=== PATIENT | female | born 1945 | race Caucasian/White ===

== ENCOUNTER → 2016-11-12 | Outpatient (CLI) | payer BC ==
[~2016-11-12] MED LIST: ACET-1311 PO; CHOL1000 PO; CLR10 PO; IBUP-1050 PO; OXYC-57 PO; WARF2TAB PO
--- NOTE | 2016-11-12 14:15 | DIAGNOSTIC IMAGING REPORT ---
AP STANDING VIEW OF BOTH KNEES; 3 VIEWS LEFT KNEE CLINICAL HISTORY: Left knee pain. FINDINGS: An AP standing view of both knees, with crosstable lateral, tunnel, and sunrise views of the left knee are obtained. No prior studies are available for comparison at the time of dictation. The skeletal structures are osteopenic. The knees demonstrate a varus deformity on the upright view. There is advanced degenerative narrowing in the medial compartment of the left knee with significant bony sclerosis, subchondral cyst formation, and large medial marginal osteophytes. Moderate to advanced narrowing is seen at the patellofemoral joint. There is only mild narrowing in the lateral compartment. There are small patellar enthesophytes as well as degenerative beaking of the tibial spine. Osteochondral irregularity is noted in the medial compartment on the tunnel image. There is no significant joint effusion. Mild prepatellar soft tissue swelling is noted. Survey images of the right knee on the frontal view also showed advanced degenerative narrowing with bony sclerosis and subchondral cyst formation of the medial compartment. There is mild soft tissue swelling around the right knee. IMPRESSION: 1. The knees demonstrate a varus deformity on the AP standing view. 2. Mild soft tissue swelling is present around both kidneys. 3. Osteopenia and advanced arthritic change are identified in the left knee as detailed above. No acute bony abnormality is seen. 4. Advanced arthritic changes also seen in the medial compartment of the right knee on the frontal image. Electronically signed by: Miguel Angel Sin M.D. 11/12/2016 2:13 PM Dictated Date/Time: 11/12/2016 2:10 PM
== END | disposition home or self-care (01) ==
LOC: C.RDSM 13:15
PROVIDERS: ATTEND Physician Assistant
DX: M25.562 Pain in left knee (principal); M21.161 Varus deformity, not elsewhere classified, right knee; M21.162 Varus deformity, not elsewhere classified, left knee; M85.861 Other specified disorders of bone density and structure, right lower leg; M85.862 Other specified disorders of bone density and structure, left lower leg

== ENCOUNTER 2017-04-06 05:06 | Inpatient (IN) | payer BC, OTHER ==
--- NOTE | 2017-03-14 11:20 | PAT Medication Instructions ---
Service Date Mar 14, 2017. Current Home Medication List Cholecalciferol (Vitamin D3), 1 TAB PO QAM Ibuprofen (Advil), 400 MG PO BID Loratadine (Claritin), 10 MG PO PRN Medication Instructions For Your Scheduled Surgery - Hold the following medications 1 week prior to surgery per surgeon's instructions: Ibuprofen (Advil), 400 MG PO BID - Hold the following medications the morning of surgery: Cholecalciferol (Vitamin D3), 1 TAB PO QAM Loratadine (Claritin), 10 MG PO PRN - Take the following medications the morning of surgery with a sip of water OTHERWISE NOTHING TO EAT OR DRINK AFTER MIDNIGHT: Tylenol (may take if needed up to 4 hours prior to surgery) If you have any questions please call us at [phone] or [phone] or [phone]
[2017-03-14 12:00] LABS: BASO ABS # 0.08 K/uL (0-0.2); COMPLETE YES; EOS % 2.8 %; HEMATOCRIT 37.7 % (37-47); IG% 0.1 %; LYMPH % 34.8 %; MEAN CELL VOLUME 91.5 fL (80-100); MEAN CORPUSCULAR HEMOGLOBIN 30.1 pg (25-34); MEAN CORPUSCULAR HGB CONC 32.9 g/dl (32-36); MEAN PLATELET VOLUME 10.7 fL (7.4-10.4); MONO % 10.8 %; NEUT % 50.5 %; PLATELET COUNT 236 K/uL (130-400); RED BLOOD COUNT 4.12 M/uL (4.2-5.4); WHITE BLOOD COUNT 8.33 K/uL (4.8-10.8)
--- NOTE | 2017-03-14 12:09 | DIAGNOSTIC IMAGING REPORT ---
CHEST 2 VIEWS ROUTINE CLINICAL HISTORY: 72 years-old Female presenting with preoperative assessment. TECHNIQUE: PA and lateral views of the chest were obtained. COMPARISON: None. FINDINGS: Cardiomediastinal silhouette normal. Lungs and pleural spaces clear. Osseous structures and upper abdomen normal. IMPRESSION: 1. No acute cardiopulmonary disease. Electronically signed by: Nikko Enrique M.D. 03/14/2017 12:07 PM Dictated Date/Time: 03/14/2017 12:07 PM
[2017-03-14 12:11] LABS: PARTIAL THROMBOPLASTIN RATIO 1.1; PROTHROMBIN TIME (PATIENT) 10.7 SECONDS (9.0-12.0)
[2017-03-14 12:12] LABS: URINE APPEARANCE CLEAR (CLEAR); URINE BILIRUBIN NEG (NEG); URINE COLOR YELLOW; URINE NITRITE NEG (NEG); URINE SPECIFIC GRAVITY 1.018 (1.000-1.030); UROBILINOGEN NEG (NEG); ZZUR CULT IF INDIC CLEAN CATCH NO
[2017-03-14 12:27] LABS: MANUAL MICROSCOPIC REQUIRED? NO; REVIEW REQ? NO
[2017-03-14 12:49] LABS: BUN/CREATININE RATIO 22.5 (10-20); CALCIUM 9.1 mg/dl (8.5-10.1); CREATININE 0.79 mg/dl (0.60-1.20); POTASSIUM 4.2 mmol/L (3.5-5.1)
--- NOTE | 2017-03-18 17:02 | HISTORY & PHYSICAL EXAMINATION ---
DATE OF ADMISSION: 04/06/2017 CHIEF COMPLAINT: Bilateral knee pain, left greater than right. HISTORY OF PRESENT ILLNESS: This 72-year-old white female presents to the office with complaints of longstanding bilateral knee pain that she has had for over 10 years. Pain has become worse with time. Left knee is the worst. She is having difficulty walking and has become self-conscious because of how she walks and rises from a chair. Pain is worse with any weightbearing. She cannot stand for longer than 20 minutes at a time. She has difficulty with stairs. No numbness or tingling. Occasional night pain. She notes intermittent swelling of her knees. She has tried OTC medications as well as activity modification and assistive devices without lasting relief. She elects to proceed with left total knee arthroplasty in hopes of alleviating her pain. PAST MEDICAL HISTORY: Significant for arthritis and a history of meningioma. PREVIOUS SURGERIES: and right craniotomy for meningioma excision approximately 16 years ago. ALLERGIES: NKDA. CURRENT MEDICATIONS: Aleve and ibuprofen. SOCIAL HISTORY: The patient is employed as an [employer]. . No tobacco use and no ETOH use. FAMILY HISTORY: Significant for heart disease and cancer. REVIEW OF SYSTEMS: Significant for above stated conditions, otherwise unremarkable. PHYSICAL EXAMINATION: GENERAL: Well-developed and well-nourished, elderly white female in no acute distress. Obvious discomfort. Sitting on a chair. Alert and oriented. SKIN: Warm and dry with good turgor. No rashes or lesions. No ecchymosis or erythema. No intraarticular effusion today. HEENT: Normocephalic and atraumatic. Eyes PERRLA, EOMI. Nares patent bilaterally without turbinate enlargement. Oropharynx is without erythema or exudate. No lesions noted. Uvula midline. Oral mucosa moist. Fair dentition. Dental caps are noted. She is noted to be fairly hard of hearing as well. HEART: RRR. No MGR. LUNGS: Clear to auscultation bilaterally. No crackles, rhonchi or wheezing. Good air movement. ABDOMEN: Bowel sounds present x4, soft and nontender. No organomegaly. No masses. Obese. MUSCULOSKELETAL: Left knee reveals significant varus stance. She has focal pain with palpation over the medial aspect of the left knee. No lateral joint line discomfort today. She has peripatellar discomfort with palpation. She has palpable crepitus with range of motion of both knees. She lacks approximately 15 degrees of terminal extension on the left knee. Flexion to 90 degrees. Strength is 5/5 with fair quad tone. No defect in the patellar tendon or quadriceps tendon. Ambulatory with a significant antalgic gait. NEUROLOGIC: Gross sensation is intact across the left leg by soft touch. Peripheral pulses are 2+. Cranial nerves II-XII are intact. DATA: Radiographic imaging previously obtained shows severe end-stage DJD of the patellofemoral joint and medial compartment of both knees, left greater than right. She has subchondral cysts as well as complete [id number] arthropathy of the medial compartment. Periarticular osteophytes and subchondral sclerosis were also present. IMPRESSION: Left knee end-stage degenerative joint disease. PLAN: Informed written consent was obtained to proceed with left total knee arthroplasty. She elects to start outpatient PT directly after discharged from the hospital. Postoperative prescriptions for Percocet and Coumadin will be provided at discharge from the hospital. She will obtain medical clearance from her PCP. Preoperative lab work, EKG, and chest x-ray have been ordered. She already has access to a walker and cane. CRISTOBALD
[2017-04-06] VITALS (10 sets, daily range): BP systolic 97–141; BP diastolic 59–81; PULSE 51–86; TEMP 36.3–36.9; O2SAT 95–99; Ht 172.7 cm; Wt 30.2 kg
[~2017-04-06] VITALS: Ht 172.7 cm; Wt 30.2 kg
[~2017-04-06 05:06] MED LIST changes: -ACET-1311 PO; -OXYC-57 PO; -WARF2TAB PO
[2017-04-06] MEDS ORDERED: ACET-1311 PO (05:27)
[2017-04-06] MEDS ORDERED: LACTATED RINGER'S 1000ML IV SCH (06:00)
[2017-04-06] MEDS ORDERED: CEFAZOLIN 2000 MG/60 ML D5W 60 ML IV SCH (06:00)
[2017-04-06] MEDS ORDERED: LACTATED RINGER'S 1000ML 1,000 ML IV SCH (06:00)
[2017-04-06] MEDS ORDERED: ROPIVACAINE 5MG/ML 30 ML 150 MG, BUPIVACAINE/EPINEPHR 0.5% MPF 30 ML, KETOROLAC TROMETH... INFIL SCH ×7 (06:00)
[2017-04-06] MEDS ORDERED: TRANEXAMIC ACID INJ 1,000 MG in SODIUM CHLORIDE 0.9% 100ML 100 ML IV SCH ×2 (06:00→15:00)
[2017-04-06] MEDS ORDERED: LACTATED RINGER'S 1000ML 500 ML IV ONE (06:00)
--- NOTE | 2017-04-06 06:22 | History & Physical Bridge Note ---
H&P Re-Evaluation Bridge Note: I have examined the patient, reviewed the History & Physical and in the interval since the performance of the History & Physical I have noted the following changes of clinical significance: consent reviewed.No changes noted
[2017-04-06] MEDS ORDERED: BUPIVACAINE 0.5 % 5 MG/1 ML PF 10ML VIAL ONE (06:30)
[2017-04-06] MEDS ORDERED: BUPIVACAINE 0.25% 30 ML VIAL ONE (06:30)
[2017-04-06] MEDS ORDERED: POVIDONE-IODINE OP SOLN 30 ML BTL ONE (06:38)
[2017-04-06] MEDS ORDERED: ORTHO JOINT ANESTHETIC ONE (06:38)
[2017-04-06] MEDS ORDERED: FENTANYL CITRATE INJ 50 MCG/1 ML 2 ML VIAL ONE (06:40)
[2017-04-06] MEDS ORDERED: MIDAZOLAM HCL 1 MG/ML 2ML VIAL ONE (06:40)
[2017-04-06] MEDS ORDERED: PROPOFOL IV EMULSION 10 MG/ML 20 ML VIAL IV ONE ×2 (06:51→07:05)
[2017-04-06] MEDS ORDERED: ATROPINE SULFATE 0.1 MG/ML 5ML SYR IV PRN (07:45)
[2017-04-06] MEDS ORDERED: EpHEDrine SULFATE INJ 50 MG/ML AMP IV PRN (07:45)
--- NOTE | 2017-04-06 08:35 | [facility] Post Operative Brief Note ---
Immediate Operative Summary Operative Date Apr 06, 2017. Pre-Operative Diagnosis Left Knee, Degenerative Joint Disease Post-Operative Diagnosis Same as preoperative Procedure(s) Performed Left Total Knee Arthroplasty Surgeon Dr. Satnam Porras Patternmaker Grader Surgeon(s) Damien Lo PA-C Estimated Blood Loss 100ml Findings severe varus/flexion deformity Fluids (cc crystalloids) 1200cc Specimens A.) Left Knee Bone and Tissue Drains none Anesthesia spinal Complication(s) None Disposition Recovery Room / PACU
[2017-04-06] MEDS ORDERED: ACETAMINOPHEN 325 MG TAB PO PRN (08:45)
[2017-04-06] MEDS ORDERED: METOCLOPRAMIDE HCL INJ 5 MG/ML 2 ML VIAL IV PRN (08:45)
[2017-04-06] MEDS ORDERED: BISACODYL 10 MG SUPP PR PRN (08:45)
[2017-04-06] MEDS ORDERED: ACETAMINOPHEN IV 100 ML IV PRN (08:45)
[2017-04-06] MEDS ORDERED: ALUMINUM/MAGNESIUM/SIMETH (MAALOX MAX) 30 ML UDC PO PRN (08:45)
[2017-04-06] MEDS ORDERED: MoRPHine SULFATE 2 MG/ML CARP IV PRN (08:45)
[2017-04-06] MEDS ORDERED: MAGNESIUM HYDROXIDE SUSP 30 ML UDC PO PRN (08:45)
[2017-04-06] MEDS ORDERED: LORATADINE 10 MG TAB PO PRN (08:45)
[2017-04-06] MEDS ORDERED: ONDANSETRON INJ 2 MG/ML 2 ML VIAL IV PRN (08:45)
[2017-04-06] MEDS ORDERED: DiphenhydrAMINE HCL 50 MG/ML VIAL IV PRN (08:45)
--- NOTE | 2017-04-06 08:53 | OPERATIVE REPORT ---
DATE OF OPERATION: 04/06/2017 PREOPERATIVE DIAGNOSIS: Osteoarthritis with severe flexion and varus deformity, left knee. POSTOPERATIVE DIAGNOSIS: Same. OPERATION PERFORMED: Cemented left total knee replacement. SURGEON: Dr. Porras. CASTABLES WORKER: Damien Lo PA-C. No resident or fellow available. PERIOPERATIVE SITUATION: Medically cleared female with intractable knee pain has significant deformity bilateral knees, left worse than right, wants to proceed with left knee replacement. CONSENT: Obtained. All complications identified. SUMMARY OF IMPLANTS: Size 4 posterior cruciate substituting femur, size 4 rotating tibial platform tray, oval domed 3 pegged patella size 41, tibial insert size 4 x 12.5 posterior cruciate substituting, two bags of Palacos G cement, Orthomix injected, IV TXA. PROCEDURE: The patient appropriately identified, site verified, consent verified, 2 grams of Ancef confirmed as being given. The left lower extremity was prepped and draped in usual routine fashion. There was a marked flexion deformity, marked varus deformity, fixed varus and flexion. Tourniquet was inflated to 300 mmHg after exsanguination of the limb with a rubber Esmarch bandage for a total of approximately 70 minutes. Midline exposure was utilized. Pressure of the tourniquet was 300 mmHg. Again total time was 70 minutes. Midline exposure utilized. Parapatellar arthrotomy performed. Synovectomy completed, soft tissue releases completed medially, osteophytes resected. Distal femur resected 14 mm. Proximal tibia resected 4 mm off the high side. The extension gap slightly tight, soft tissue releases and slight 2 mm resection gave extension gap excellent. Femur was sized between a 5 and 4, was measured 5 cut 4. There was no notching. The flexion gap was excellent. The box cut was made and a size 4 fit well. Tibia was then broached and reamed to a size 4 and the trial with the 10 and a 12.5 spacer revealed the 12.5 spacer gave a little bit more mid range flexion stability, so that was elected, it did not eliminate extension. The patella was sized to a 41 resection made leaving 15 mm, seating holes made and the trial tracked well. All trial implants were then removed. The Orthomix injected. Wound irrigated with Betadine, Pulsavac, the permanent cemented into position. After 12 minutes, the tourniquet deflated. After 14 minutes the knee flexed. Minor cement removal required. The wound was irrigated with Betadine, Pulsavac and permanent spacer seated. The knee reduced and closed with #1 Ethibond, #1 Vicryl, 2-0 Vicryl and stainless steel clips. Estimated blood loss 100 mL. Crystalloid 1200 mL. Leg alignment of the limb was excellent postop. The patient was transferred to recovery room in satisfactory condition having tolerated the procedure well. DVT prophylaxis with Coumadin. I attest to the content of the Intraoperative Record and any orders documented therein. Any exception s are noted below.
[2017-04-06] MEDS: DOCUSATE SODIUM 100 MG CAP PO SCH ×2 (09:00→21:22)
[2017-04-06] MEDS: MULTIVITAMIN TAB PO SCH (09:00)
[2017-04-06] MEDS: PANTOprazole SOD 40 MG TAB PO SCH (09:00)
--- NOTE | 2017-04-06 09:00 | DIAGNOSTIC IMAGING REPORT ---
LEFT KNEE 2 VIEWS History: Left total knee arthroplasty. Degenerative arthritis. Postop. FINDINGS: The patient is status post a left total knee arthroplasty. The hardware is intact. No fracture or dislocation. Skin mellisa are in place. IMPRESSION: Left total knee arthroplasty. No evidence for hardware complication. Electronically signed by: Yomi Peterson M.D. 04/06/2017 8:59 AM Dictated Date/Time: 04/06/2017 8:58 AM
--- NOTE | 2017-04-06 09:14 | Anesthesiology Progress Note ---
Anesthesia Post Op Note Date & Time Apr 06, 2017 at 09:13 Vital Signs Pain Intensity: 0 Vital Signs Past 12 Hours Date Time Temp Pulse Resp B/P (MAP) Pulse Ox O2 Delivery O2 Flow Rate FiO2 04/06/17 09:00 61 19 124/64 98 Nasal Cannula 2 04/06/17 08:50 60 20 119/61 100 Oxymask 10 04/06/17 08:40 64 19 102/58 97 Oxymask 10 04/06/17 08:37 36.5 67 16 121/59 97 Oxymask 10 04/06/17 05:30 36.5 66 20 141/81 98 Room Air Notes Mental Status: alert / awake / arousable, participated in evaluation Pt Amnestic to Procedure: Yes Nausea / Vomiting: adequately controlled Pain: adequately controlled Airway Patency, RR, SpO2: stable & adequate BP & HR: stable & adequate Hydration State: stable & adequate Neuraxial Anesthesia: was administered, sensory block is resolving Anesthetic Complications: no major complications apparent
[2017-04-06] MEDS ORDERED: D5W AND 1/2NSS + 20MEQ KCL 1,000 ML IV SCH (10:30)
[2017-04-06] MEDS ORDERED: MoRPHine SULFATE 4 MG/ML 1 ML CARP\\VIAL IV PRN (10:30)
--- NOTE | 2017-04-06 10:41 | [facility] Operative Report ---
Operative Report Operative Date Apr 06, 2017. Pre-Operative Diagnosis Left Knee, Degenerative Joint Disease Post-Operative Diagnosis Left knee Same Procedure(s) Performed Left Total Knee Arthroplasty Surgeon Dr. Satnam Porras Pulmonary Disease Specialist Surgeon(s) Damien Lo PA-C Estimated Blood Loss 100ml Findings Left knee DJD Fluids 1200cc Specimens A.) Left Knee Bone and Tissue Drains none Anesthesia spinal Complication(s) None Disposition Recovery Room / PACU Indications This 72-year-old white female presented to the office with complaints of intractable bilateral knee pain, left greater than right. She had tried conservative care measures including activity modification, use of assistive devices, oral anti-inflammatories, oral pain medication, and injection therapy without relief. She elected to proceed with surgical intervention after being educated about potential risks and outcomes. Preoperative x-rays were obtained. Description of Procedure The patient was administered a spinal anesthetic and then taken to the operating room where she was given sedation. She was prepped and draped in usual sterile fashion. Please see Dr. Porras's operative report for specifics of the procedure. I was present for the entire case from initial patient positioning through final wound closure. Assistance was provided in tissue traction, hemostasis, trial implant placement, final implant placement, and final wound closure. Patient was taken to the recovery room in satisfactory condition. I attest to the content of the Intraoperative Record and any orders documented therein. Any exceptions are noted below.
--- NOTE | 2017-04-06 11:18 | PROGRESS NOTE ---
DATE: 04/06/2017 Postop check status post left total knee replacement. The patient is comfortable in bed and spinal still has significant effects. She denies any motor ability other than the hips. Denies any pain. She denies nausea, vomiting, chest pain, shortness of breath, fever or chills. Vital signs are stable. She is afebrile. Wound is clean and dry. Pulses intact distally. Again sensation limited by the spinal which has not worn off yet. Postop x-rays, AP and lateral knee reveals excellent implant positioning. ASSESSMENT: Status post total knee replacement; has varus flexion deformity well. Continue with care pathway. Mobilize as soon as the effects of the spinal worn off. DVT prophylaxis with Coumadin.
[2017-04-06] MEDS: KETOROLAC TROMETHAMINE 15 MG/ML VIAL IV. SCH ×3 (11:41→23:46)
[2017-04-06] MEDS: FERROUS GLUCONATE 324 MG TAB PO SCH ×2 (12:50→17:55)
[2017-04-06] MEDS: CEFAZOLIN IV 2,000 MG in DEXTROSE 5% 50ML 50 ML IV SCH ×2 (13:55→21:59)
[2017-04-06] MEDS ORDERED: OXYC-57 PO (15:33)
[2017-04-06] MEDS ORDERED: WARF2TAB PO (15:33)
[2017-04-06] MEDS ORDERED: WARFARIN SOD 5 MG TAB PO ONE (16:00)
--- NOTE | 2017-04-06 16:05 | PROGRESS NOTE ---
DATE: 04/06/2017 AFTERNOON ROUNDS DATE: 04/06/2017 The patient is doing extremely well, has been up and ambulating in the hallway. Ate and drank reasonably well. Will Hep-Lock IV and continue towards goal of getting her discharged tomorrow after a.m. PT/OT. P.R.N. q. 8 hour 1000 mg Tylenol ordered for oral pain management. Additionally physical exam reveals intact neurovascular status and x-rays look excellent.
[2017-04-06] MEDS ORDERED: ACETAMINOPHEN 500 MG TAB PO PRN (22:00)
[2017-04-06] MEDS: OXYCODONE HCL IR 5 MG TAB (IMMEDIATE RELEASE) PO PRN (23:57)
[2017-04-07 03:02] VITALS: BP 107/66; PULSE 62; TEMP 36.7; O2SAT 98
[2017-04-07] MEDS: KETOROLAC TROMETHAMINE 15 MG/ML VIAL IV. SCH (05:45)
[2017-04-07 06:14] LABS: HEMATOCRIT 32.9 % (37-47); MEAN CELL VOLUME 92.4 fL (80-100); MEAN CORPUSCULAR HEMOGLOBIN 29.2 pg (25-34); MEAN CORPUSCULAR HGB CONC 31.6 g/dl (32-36); MEAN PLATELET VOLUME 11.3 fL (7.4-10.4); PLATELET COUNT 184 K/uL (130-400); RED BLOOD COUNT 3.56 M/uL (4.2-5.4); WHITE BLOOD COUNT 13.36 K/uL (4.8-10.8)
[2017-04-07 06:24] LABS: PROTHROMBIN TIME (PATIENT) 11.1 SECONDS (9.0-12.0)
[2017-04-07 06:55] LABS: BUN/CREATININE RATIO 16.4 (10-20); CALCIUM 8.3 mg/dl (8.5-10.1); CREATININE 0.92 mg/dl (0.60-1.20); POTASSIUM 3.9 mmol/L (3.5-5.1)
[2017-04-07] MEDS ORDERED: DEXAMETHASONE INJ 10 MG in SYRINGE 0 ML IV SCH (07:30)
--- NOTE | 2017-04-07 07:38 | PROGRESS NOTE ---
DATE: 04/07/2017 Postop day #1: Status post left total knee replacement. At this point in time, the patient is without chest pain, shortness of breath, fever, chills, nausea, vomiting or headache. Vital signs are stable. She is afebrile. Hematocrit stable at 33, dropping from roughly 35.5-36. Neurovascular check is normal. Wound clean, dry and intact. Can do a straight leg raise. She has been ambulating in the jang. Electrolytes are good. INR is subtherapeutic. ASSESSMENT: Doing well. Will discharge today after PT, OT in the morning. Discharge on 6 mg of Coumadin a day. Check INR on Tuesday.
--- NOTE | 2017-04-07 07:41 | DISCHARGE SUMMARY ---
CHIEF COMPLAINT: Left knee pain. HISTORY OF PRESENT ILLNESS: The patient was admitted for elective left total knee replacement. Her postoperative course has been uneventful. She is ambulatory in the jang. Her hematocrit is stable. She denies any marked need for parenteral pain medication. PAST MEDICAL HISTORY: Remarkable for arthritis and history of meningioma. PAST SURGICAL HISTORY: Includes , craniotomy for meningioma excision. ALLERGIES: None. PREOPERATIVE MEDICATIONS: Aleve or ibuprofen. She will cancel those and add p.r.n. Percocet, p.r.n. Tylenol and Coumadin. 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 No tobacco or alcohol use. FAMILY HISTORY: Remarkable for heart disease and cancer. REVIEW OF SYSTEMS: Noncontributory. Denies chest pain, shortness of breath, fever, chills, nausea, vomiting or headache. PERTINENT ORTHOPEDIC EXAMINATION: Reveals her calves are nontender, abdomen, nontender. She ambulates well. Neurovascular check is normal. Postop x-rays look excellent. ASSESSMENT: Doing well, status post left total knee replacement. Will discharge today after a.m. PT/OT. Follow up in 2 weeks for staple removal.
[2017-04-07 07:55] VITALS: BP 100/70; PULSE 60; TEMP 36.6; O2SAT 96
[2017-04-07] MEDS ORDERED: WARF2TAB PO (08:24)
--- NOTE | 2017-04-07 08:29 | Orthopedic Progress Note ---
Orthopedic Progress Note Date of Service Apr 07, 2017. Subjective Post OP Day: 1 Reports: feeling well, pain controlled w PO medications, Denies: complaints, chest pain, SOB, nausea / vomiting, light headedness, calf pain Additional Notes: dressed, ready for PT. Objective calves soft nontender, N/V intact, capillary refill less than 2 sec., dressing C /D/I, incision C/D/I, A&O x3, toes mobile, CMS intact surgical wound is dry, no active drainage. Date Time Temp Pulse Resp B/P (MAP) Pulse Ox O2 Delivery O2 Flow Rate FiO2 04/07/17 07:55 36.6 60 16 100/70 (80) 96 Room Air 04/07/17 07:20 Room Air 04/07/17 03:02 36.7 62 16 107/66 (80) 98 Room Air 04/06/17 23:51 36.9 61 17 104/66 (79) 97 Room Air 04/06/17 20:15 Room Air 04/06/17 18:44 36.3 86 18 105/59 (74) 95 Room Air 04/06/17 16:00 Room Air 04/06/17 15:03 36.6 64 16 100/63 (75) 96 Room Air 04/06/17 14:03 98 Room Air 04/06/17 12:35 55 18 97/61 (73) 98 04/06/17 11:40 53 16 115/60 (78) 97 04/06/17 10:45 51 18 105/62 (76) 99 04/06/17 10:10 56 18 115/72 (86) 98 04/06/17 09:35 Nasal Cannula 2.0 04/06/17 09:35 Nasal Cannula 2.0 04/06/17 09:35 36.5 58 14 107/61 (76) 99 Nasal Cannula 2.0 04/06/17 09:20 59 18 116/65 99 Nasal Cannula 2 04/06/17 09:10 36.4 59 17 115/63 99 Nasal Cannula 2 04/06/17 09:00 61 19 124/64 98 Nasal Cannula 2 04/06/17 08:50 60 20 119/61 100 Oxymask 10 04/06/17 08:40 64 19 102/58 97 Oxymask 10 04/06/17 08:37 36.5 67 16 121/59 97 Oxymask 10 Laboratory Results 24 Hours: Test 04/07/17 05:18 Hematocrit 32.9 % Hemoglobin 10.4 g/dL Prothromb Time International Ratio 1.0 Prothrombin Time 11.1 SECONDS Assessment & Plan Assessment: Left knee post op day 1 total knee arthroplasty Plan: PT/OT this morning coumadin per nomogram dressing changed this morning by me-wound looks excellent D/C to home this afternoon if she does well with PT. f/u in the office Apr 21 for staple removal Discharge Planning Discharge Planning: home DVT Prophylaxis: TEDs, SCDs, Coumadin Therapy: Physical Therapy
--- NOTE | 2017-04-07 08:32 | Discharge Instructions ---
Discharge Instructions Date of Service Apr 06, 2017. Admission Reason for Admission: Left Knee Degenerative Joint Disease Discharge Discharge Diagnosis / Problem: left knee s/p total knee replacement Discharge Goals Goal(s): Decrease discomfort, Improve function, Increase independence Activity Recommendations Activity Limitations: as noted below Lifting Limitations: gradually increase as tolerated Exercise/Sports Limitations: until after follow-up appointment Shower/Bathe: keep incision dry Driving or Machine Use: No driving until cleared by Dr. Porras Weightbearing Status: Left weightbearing (as tolerated) . Instructions / Follow-Up Instructions / Follow-Up New Medicine: * You will likely be taking one or more of these medications: 1. Percocet - Take, as directed, when you need it, every four to six hours to control your pain. 2. Coumadin - Thins your blood to lessen the chance of forming a blood clot. The dose of this is different for each person and is based on your blood tests that are done twice a week. * The most common side effects of pain medicine and iron are nausea and constipation. If nausea or constipation is too much of a problem or if you have any questions about your new medicines or doses, call [facility] at . We will try to help you manage these issues. VERY IMPORTANT TO READ AND REVIEW" Blood Clots and Blood Thinning Medicine: * You are given Coumadin during the immediate post-operative period to lessen the risk of blood clots forming in your legs and/or lungs. Coumadin is usually given for six weeks after surgery. * The prescription is for 2 mg tablets. At discharge, you should understand your dose and take it all at the same time every day, preferably after dinner. * You need to get your blood checked 1 - 2 times per week for six weeks or as directed. * If your dose needs to change, we will call you. Do not take your medication on the day of the blood test until we call you. Pain: * The immediate post-operative period after knee replacement surgery is often quite painful. * You are given a prescription for pain medicine. You should take it, as directed, when you need it, especially before physical therapy and before going to bed. Pain that interferes with sleep is very common and can last several months. * You will likely need pain medicine for the first four to six weeks. It will not stop all of the pain. The pain will lessen and as you feel better, you may change to milder pain medicine such as Tylenol. * The most common side effects of pain medicine are nausea and constipation, so don't take more than you need. Physical Therapy: * You will have physical therapy two or three times each week for four to six weeks after your surgery in order to regain your knee range of motion and to retrain your knee to work properly. * It is just as important to make sure you are getting your knee perfectly straight as it is to regain your knee bend. * Taking a pain pill an hour before therapy can help you have a more productive and comfortable therapy session if needed. Home Exercise: * You were shown a series of exercises (heel props, heel slides, etc.) in the hospital. Do these exercises three to four times each day including the exercises you were shown in physical therapy. Walking: * Get up and walk several times each day. For the first four weeks, try not to stand or walk for more than one hour at a time. If you do stand or walk for more than one hour, you will not hurt anything, but your knee and leg will likely swell. * As you feel comfortable, you may change from the walker or crutches to a cane and then to independent walking. SELF CARE INSTRUCTIONS AFTER TOTAL KNEE REPLACEMENT A. You may need to continue a physical therapy program after discharge from the hospital. There are several options available to you. Your doctor will assist you in selecting the best one for you. 1. An out-patient facility 2 to 3 times a week for therapy or home therapy. 2. Continue working on all exercises taught to you in the hospital. Your goals should be to increase bending of your knee to 90 degrees and beyond and to fully straighten your knee. B. You may progress at your own pace from walking with a walker or crutches to a cane; then to no assistive devices. C. Make walking a part of your daily routine. Be up as much as comfortable with rest periods throughout the day. Rest with leg elevation is very important. Use the ice wrap frequently for the first 3-4 weeks. D. There are no restrictions on activities. You may ride in a car, shop, participate in digital technician and all social activities. E. Wear the long elastic stockings (MARIA G hose) 20 hours a day for six weeks after surgery. They can be removed several times a day for laundering and for a shower. F. Do not place a pillow behind your knee when resting. A pillow at your ankle is okay. VERY IMPORTANT TO READ AND REVIEW A. Take Coumadin, Aspirin or Lovenox (blood thinning medications) as directed by your doctor. If on Coumadin, have a pro-time (blood test) drawn according to your doctor's instructions. This will tell the doctor how well the Coumadin is thinning your blood. 1. YOU WILL BE GIVEN AN ORDER AT DISCHARGE FOR PT/INR (BLOOD WORK). PLEASE HAVE THIS DONE INSTRUCTED. PLEASE CALL OUR OFFICE AFTER YOUR BLOODWORK IS COMPLETE SO WE CAN TRACK YOUR RESULTS. IF YOU ARE GOING TO OUTPATIENT PHYSICAL THERAPY, YOU WILL NEED TO GO TO OUTPATIENT TESTING TO HAVE IT DRAWN. B. There are a few signs you need to watch for after you are home. Call [facility] if you notice any of the followin. Increased severe knee pain. Some pain is expected especially when you exercise. 2. Increased swelling in your leg or knee; pain or swelling of the calf muscle in either lower leg. 3. Any fluid drainage from the incision. 4. Shortness of breath or chest pain. C. Please call [facility] at if you have any concerns or questions about your operation or recovery. The doctor or his nurse will return your call promptly. D. You must take antibiotics before dental work, bladder, bowel or other surgery. Call the office to obtain a prescription at least 2 days prior to your appointment. * CALL IF INCREASED PAIN, REDNESS, DRAINAGE OR FEVER GREATER THAT 101. * Sutures should be removed 12-14 days after surgery unless you are on chronic steriods, then it will be 14-18 days after surgery. Call your doctor if: * Temperature above 101 degrees F. * Pain not relieved by pain medicine ordered. * Increased drainage or redness from incision. * Notify your doctor with any questions or concerns. Current Hospital Diet Patient's current hospital diet: Regular Diet Discharge Diet Recommended Diet: Regular Diet Procedures Procedures Performed: Left Total Knee Arthroplasty Pending Studies Studies pending at discharge: no Medical Emergencies . Who to Call and When: Medical Emergencies: If at any time you feel your situation is an emergency, please call 911 immediately. . Non-Emergent Contact Non-Emergency issues call your: Primary Care Provider, Surgeon Call Non-Emergent contact if: temperature is above 101, wound has increased drainage, wound has increased redness, wound has increased pain, you have any medication questions . "Provider Documentation" section prepared by Damien Lo PA-C. . VTE Core Measure Inpt VTE Proph given/why not?: Warfarin (Coumadin), T.E.D. Stockings, SCD's [place] Drug Monitoring Program Search Results: no issues identified
[2017-04-07] MEDS: FERROUS GLUCONATE 324 MG TAB PO SCH (08:38)
[2017-04-07] MEDS: DOCUSATE SODIUM 100 MG CAP PO SCH (08:38)
[2017-04-07] MEDS: MULTIVITAMIN TAB PO SCH (08:38)
[2017-04-07] MEDS: PANTOprazole SOD 40 MG TAB PO SCH (08:38)
--- NOTE | 2017-04-07 08:49 | Anesthesiology Progress Note ---
Anesthesia Post Op Note Date & Time Apr 07, 2017 at 08:48 Vital Signs Pain Intensity: 2.0 Vital Signs Past 12 Hours Date Time Temp Pulse Resp B/P (MAP) Pulse Ox O2 Delivery O2 Flow Rate FiO2 04/07/17 07:55 36.6 60 16 100/70 (80) 96 Room Air 04/07/17 07:20 Room Air 04/07/17 03:02 36.7 62 16 107/66 (80) 98 Room Air 04/06/17 23:51 36.9 61 17 104/66 (79) 97 Room Air Notes Mental Status: alert / awake / arousable Pt Amnestic to Procedure: Yes Nausea / Vomiting: adequately controlled Pain: adequately controlled Airway Patency, RR, SpO2: stable & adequate BP & HR: stable & adequate Hydration State: stable & adequate Neuraxial Anesthesia: sensory block resolved
[2017-04-07] MEDS: OXYCODONE HCL IR 5 MG TAB (IMMEDIATE RELEASE) PO PRN (09:09)
[2017-04-07 09:27] VITALS: BP 100/70; PULSE 60; TEMP 36.6; O2SAT 96
[2017-04-07 09:30] VITALS: O2SAT 97
[2017-04-07] MEDS ORDERED: WARFARIN SOD 5 MG TAB PO ONE (11:30)
[2017-04-07] MEDS ORDERED: WARFARIN SOD 5 MG TAB PO SCH (16:00)
== END 2017-04-07 11:45 | disposition home or self-care (01) | DRG 470 ==
LOC: C.ACU 05:06 → C.3E 06:20 → ENRESERV 09:12
PROVIDERS: ADMIT Physical Medicine & Rehabilitation Sports Medicine; ATTEND Physical Medicine & Rehabilitation Sports Medicine
PROC: 0SRD0J9 Replacement of Left Knee Joint with Synthetic Substitute, Cemented, Open Approach (ICD-10-PCS; principal; 2017-04-06 07:00)
DX: M17.12 Unilateral primary osteoarthritis, left knee (principal); E66.9 Obesity, unspecified; M21.162 Varus deformity, not elsewhere classified, left knee; M54.5 Low back pain; R79.1 Abnormal coagulation profile; M25.561 Pain in right knee; Z86.011 Personal history of benign neoplasm of the brain; Z79.899 Other long term (current) drug therapy; Z79.1 Long term (current) use of non-steroidal anti-inflammatories (NSAID)

== ENCOUNTER → 2017-05-23 | Outpatient (CLI) | payer BC, OTHER ==
[~2017-05-23] MED LIST changes: +ACET-1311 PO; -IBUP-1050 PO; +OXYC-57 PO; +WARF2TAB PO
== END | disposition home or self-care (01) ==
LOC: C.RDSM 16:08
PROVIDERS: ATTEND Physical Medicine & Rehabilitation Sports Medicine
DX: Z96.652 Presence of left artificial knee joint (principal)

== ENCOUNTER → 2017-09-12 | Outpatient (CLI) | payer BC | END | disposition home or self-care (01) | LOC: C.RDSM 13:00 | PROVIDERS: ATTEND Physical Medicine & Rehabilitation Sports Medicine | DX: M17.0 Bilateral primary osteoarthritis of knee (principal) ==